=== PATIENT | female | born 2000 | race Caucasian/White ===

== ENCOUNTER 2025-03-18 10:02 | Emergency (ER) | payer OTHER | END 2025-03-18 12:54 | disposition home or self-care (01) | LOC: JD.ED 10:02 | DX: S52.615A Nondisplaced fracture of left ulna styloid process, initial encounter for closed fracture (principal); S52.572A Other intraarticular fracture of lower end of left radius, initial encounter for closed fracture; V86.56XA Driver of dirt bike or motor/cross bike injured in nontraffic accident, initial encounter; Y93.55 Activity, bike riding | CPT/HCPCS: 29125; 73090-26-LT; 73090-LT; 73110-26-LT; 73110-LT; 99283-25 ==